=== PATIENT | female | born 1995 | race Caucasian/White ===

== ENCOUNTER 2018-07-12 17:57 | Inpatient (IN) ==
[2018-07-12] MEDS ORDERED: NALBUPHINE HCL 10 MG/ML AMPUL IV PRN ×2 (18:10)
[2018-07-12] MEDS ORDERED: MISOPROSTOL 100 MCG TABLET VG PRN (18:10)
[2018-07-12] MEDS ORDERED: OXYTOCIN/DEXTROSE 5%-WATER 30 UNITS/500 ML BAG IV ONE (18:10)
[2018-07-12] MEDS ORDERED: ONDANSETRON HCL/PF 2 MG/ML VIAL IV PRN (18:10)
[2018-07-12] MEDS ORDERED: LIDOCAINE HCL 50 ML VIAL PERI PRN (18:10)
[2018-07-12] MEDS ORDERED: RINGER'S SOLUTION,LACTATED 1,000 ML IV ONE (18:10)
[2018-07-12 19:17] LABS: Cocaine Ur Negative (NEGATIVE); Urine Barbiturate Negative (NEGATIVE); Urine Benzodiazepines Negative (NEGATIVE); Urine Opiates Negative (NEGATIVE); Urine PCP Negative (NEGATIVE); Urine THC Negative (NEGATIVE)
[2018-07-12] MEDS: RINGER'S SOLUTION,LACTATED 1,000 ML IV PRN (19:17)
[2018-07-13] MEDS: RINGER'S SOLUTION,LACTATED 1,000 ML IV PRN (04:19)
--- NOTE | 2018-07-13 07:50 | HP ---
Chief Complaint - Chief Complaint Date of Service: 07/13/18 Time of Service: 07:46 Chief Complaint: Induction History of Present Illness: The patient presents for an elective IOL. Pt denies vb or lof. She feels ctx. Fetus is active. Medical History (Last Updated 03/07/18 @ 11:00 by Artemio Weeks RN) IBS (irritable bowel syndrome) Onset Date: Unknown Lactose intolerance Onset Date: Unknown Migraine Onset Date: Unknown Surgical History: Surgical History (Last Updated 03/07/18 @ 11:00 by Artemio Weeks RN) No history of previous surgery Family History: Family History (Last Updated 03/07/18 @ 11:01 by Artemio Weeks RN) Mother Hypertension Cancer Grandmother Diabetes Cancer Hypertension Father MVA (motor vehicle accident) Social History: Preferred Language Israeli Smoking Status Never smoker (Last Updated 07/07/18 @ 11:40 by Clary Basilio MD) No Social History Section defined Review Of Systems (GEN) - Review of Systems Generalized/Overall Review: Present: No Symptoms Reported Misc: All systems neg except as marked Allergies/Adverse Reactions: Allergies Allergy/AdvReac Type Severity Reaction Status Date / Time No Known Allergies Allergy Verified 07/12/18 18:48 Milk Allergy Intermediate Uncoded 07/12/18 18:48 Weeds Allergy Intermediate Rash, Uncoded 07/12/18 18:48 blister-like, sores Home Medications: HOME MEDICATIONS vitamin,calcium,pnednndl-ogpq-fzurv acid tablet 1 tab PO DAILY 03/01/18 [Last Taken 07/12/18 09:00] Ferrous Sulfate [Iron] 325 mg PO DAILY 07/12/18 [Last Taken 07/12/18 09:00] Exam - Exam Vital Signs: Vital Signs - Last Taken Temp 36.7 C 07/12/18 18:40 Pulse 87 07/12/18 18:40 Resp 16 07/12/18 18:40 BP 122/76 07/12/18 18:40 Pulse Ox 98 07/12/18 18:40 Constitutional: Present: Alert, Oriented x3, Cooperative, No distress Respiratory: Present: lungs clear, normal breath sounds Cardiovascular/Chest: Present: regular rate, rhythm Abdomen: Present: soft, nontender, nondistended Extremity: Present: non-tender, no calf tenderness Skin Exam: Present: normal color, warm/dry, no cyanosis Appearance: Present: appropriate appearance Eye contact: Present: cooperative Thoughts: Present: normal thought pattern - cvx 3/80/-2 AROM for a large amount of clear fluid Diagnostic Studies: Laboratory Results Urine Opiates Screen Negative (NEGATIVE) 07/12/18 18:19 Barbiturate Screen Negative (NEGATIVE) 07/12/18 18:19 Ur Phencyclidine Scrn Negative (NEGATIVE) 07/12/18 18:19 Urine Amphetamine Negative (NEGATIVE) 07/12/18 18:19 U Benzodiazepines Scrn Negative (NEGATIVE) 07/12/18 18:19 Urine Cocaine Screen Negative (NEGATIVE) 07/12/18 18:19 Urine Marijuana (THC) Negative (NEGATIVE) 07/12/18 18:19 Blood Type B Positive 07/12/18 18:50 Antibody Screen Negative 07/12/18 18:50 Assessment/Plan - Narrative Narrative: 23 yo @ 39w 2d who presented to labor and delivery for an elective IOL. She received one dose of cytotec for cervical ripening followed by pitocin administration. Her pitocin is currently at 12 milliunits/min. AROM for a large amount of clear fluid. FHT cat 1 GBS negative: prophylaxis not indicated
[2018-07-13] MEDS ORDERED: ONDANSETRON HCL/PF 2 MG/ML VIAL IV PRN (09:02)
[2018-07-13] MEDS ORDERED: BUPIVACAINE HCL/0.9 % NACL/PF 250 ML EP PRN (09:02)
[2018-07-13] MEDS ORDERED: NALOXONE HCL 1 MG/1 ML SYRG IV PRN (09:02)
--- NOTE | 2018-07-13 09:13 | PN ---
Progess Note - Interim Date: 07/13/18 Time: 09:13 Narrative: 07/13/18 09:13 Called by RN regarding patient having large emesis, a mild range BP, and brisk reflexes. Pre-eclampsia labs and UP:CR ordered
[2018-07-13] MEDS ORDERED: BUPIVACAINE HCL/PF 30 ML VIAL EP SCH (09:15)
--- NOTE | 2018-07-13 09:16 | ANES ---
Anesthesia Pre Procedure Eval Vitals/Labs: Last Vital Signs Temp 36.7 C 07/12/18 18:40 Pulse 87 07/12/18 18:40 Resp 16 07/12/18 18:40 BP 122/76 07/12/18 18:40 Pulse Ox 98 07/12/18 18:40 HOME MEDICATIONS vitamin,calcium,yusnxfzp-woyo-mddbj acid tablet 1 tab PO DAILY 03/01/18 [Last Taken 07/12/18 09:00] Ferrous Sulfate [Iron] 325 mg PO DAILY 07/12/18 [Last Taken 07/12/18 09:00] Allergies/Adverse Reactions: Allergies Allergy/AdvReac Type Severity Reaction Status Date / Time No Known Allergies Allergy Verified 07/12/18 18:48 Milk Allergy Intermediate Uncoded 07/12/18 18:48 Weeds Allergy Intermediate Rash, Uncoded 07/12/18 18:48 blister-like, sores - Planned Procedure Planned Procedure: Labor epidural Medication List Reviewed:: Yes Allergies Verified: Yes Medical History (Last Reviewed 07/13/18 @ 09:15 by Jacob Aguayo CRNA) IBS (irritable bowel syndrome) Onset Date: Unknown Lactose intolerance Onset Date: Unknown Migraine Onset Date: Unknown Surgical History (Last Reviewed 07/13/18 @ 09:15 by Jacob Aguayo CRNA) No history of previous surgery Family History (Last Reviewed 07/13/18 @ 09:15 by Jacob Aguayo CRNA) Mother Hypertension Cancer Grandmother Diabetes Cancer Hypertension Father MVA (motor vehicle accident) - Anesthesia Assessment and Plan ASA Class: PS, II Anesthesia Type Plan: Epidural
[2018-07-13 09:27] LABS: Hematocrit 33.2 % (37.0-47.0); Hemoglobin 11.4 gm/dL (12.5-16.0); Mean Cell Volume 94.3 fl (78-100); Mean Corpuscular Hemoglobin 32.4 pg (27-31); Mean Corpuscular Hgb Conc 34.3 g/dl (32-36); Mean Platelet Volume 12.9 fl (8-12.5); Neutrophil # 10.3 K/mm3 (1.3-6.0); Neutrophil % 76.5 % (42-75.0); Platelet Count 124 K/mm3 (150-450); Red Blood Count 3.52 M/mm3 (4.2-5.4); Red Cell Distribution Width 12.4 % (11.5-14.0); White Blood Count 13.5 K/mm3 (4.0-10.5)
[2018-07-13 09:36] LABS: Albumin * 2.4 gm/dl (3.4-5.0); Anion Gap 15.1 mmol/L (6.8-13.8); BUN/Creatinine Ratio 15.5 (9.0-21.6); Bilirubin, Total 0.4 mg/dL (0.0-1.1); Ca. Corrected For Albumin 9.7 mg/dL (8.4-10.2); Calcium * 8.7 mg/dL (7.9-10.9); Carbon Dioxide 22.5 mmol/L (24-32.6); Potassium 3.6 mmol/L (3.4-4.6)
--- NOTE | 2018-07-13 09:43 | ANES ---
Anesthesia Procedure Note Procedure Note: ANESTHESIA PROCEDURE NOTE Date of Procedure: 07/13/2018. Time of procedure: 929. Performed by: Jacob Aguayo CRNA Ecological Economist: None. Preprocedure diagnosis: Active labor. Post procedure diagnosis: Same. Procedure: Insertion of labor epidural. Indications: The patient is a 23-year-old female in active labor requesting labor epidural for pain management. Findings: See below. Details of the procedure: The patient was placed in a sitting position. DuraPrep as well as Betadine swabs X3 was applied to the patient's back. Patient was then draped in a sterile fashion. Lidocaine 1% was infiltrated to the skin and subcutaneous tissues at the level of the L3-4 interspace. The epidural space was identified using a 18-gauge Tuohy needle with yamt-mz-bmnyiblcth technique. Epidural catheter was inserted to a depth of 11 centimeters at skin. Negative test dose was elicited using 3 mL of 1% p reservative-free lidocaine plus epinephrine 1 200,000. The epidural catheter was then taped and secured in place. A loading dose of 8 mL of 0.25% preservative-free bupivacaine was administered to the epidural catheter after negative aspiration for blood and CSF. EBL: Minimal. Fluids: N/A. Specimen: N/A. Post procedure condition: The patient tolerated the procedure well. No complications were noted. Thank you for this consultation. Jacob Aguayo CRNA
--- NOTE | 2018-07-13 09:45 | ANES ---
Post Anesthesia Assessment - Vital Signs Vitals: Last Vital Signs Temp 36.6 C 07/13/18 09:40 Pulse 92 07/13/18 09:40 Resp 20 07/13/18 09:40 BP 126/91 H 07/13/18 09:40 Pulse Ox 98 07/13/18 09:40 Airway Patency: Normal - Mental Status Level Of Consciousness: Awake - N/V Assessment Nausea/Vomiting Presence: None Dehydration:: No
[2018-07-13 10:15] LABS: Random Urine Total Protein 13.3 mg/dL (0-12)
[2018-07-13] MEDS ORDERED: SENNOSIDES 8.6 MG TABLET PO PRN (11:20)
[2018-07-13] MEDS ORDERED: HYDROCORTISONE 30 APPL TUBE TP PRN (11:20)
[2018-07-13] MEDS ORDERED: BENZOCAINE/MENTHOL 81 SPRAY CAN TP PRN (11:20)
[2018-07-13] MEDS ORDERED: GLYCERIN/WITCH HAZEL LEAF 40 APPL BOX TP PRN (11:20)
[2018-07-13] MEDS ORDERED: BISACODYL 10 MG SUPP.RECT RC PRN (11:20)
[2018-07-13] MEDS ORDERED: oxyCODONE HCL/ACETAMINOPHEN 1 TAB TABLET PO PRN ×2 (11:20)
[2018-07-13] MEDS ORDERED: MISOPROSTOL 200 MCG TABLET RC ONE (11:25)
--- NOTE | 2018-07-13 11:25 | OR ---
Operative Report - Dictated Report Narrative: Date of delivery: 07/13/2017 Time of delivery: 1052 Gender: male weight: 2838 grams APGARS: 6/8 The patient is a 23 year old @ 39w 2d who presented to labor and delivery for an elective induction of labor. She received one dose of cytotec for cervical ripening followed by pitocin administration and AROM for a large amount of fluid. She progressed to complete dilation. The baby was having variable decelerations and thus a vacuum delivery was done. There was one pop off of the mushroom vacuum. The pressure was at the green level. The baby delivered in the NIKKI presentation. A tight nuchal cord times two was noted and thus the cord was clamped and cut at the perineum. The rest of the infant was delivered. The cord was clamped and cut and the infant was transferred to the warmer. There was avulsion of the umbilical cord which was thin. The placenta was manually removed in three pieces. Due to the manual uterine exploration 2grams of Ancef IV were administered after delivery. Uterine atony was noted. Pitocin 30 units, cytotec 1000mcg, and methergine 0.2 IM were given. Manual uterine exploration was again undertaken and clots were removed from the lower uterine segment after which the fundus was firm. Bilateral labial lacerations were noted. The right labial laceration was repaired with 4-0 vicryl for hemostasis. Hemostasis was adequate. Lacerations: bilateral labial EBL: 500 mL Complications: none Specimens: placenta
[2018-07-13] MEDS ORDERED: METHYLERGONOVINE MALEATE 0.2 MG/ML AMPUL IM ONE (11:26)
[2018-07-13] MEDS ORDERED: ceFAZolin SODIUM/DEXTROSE,ISO 2 GM/50 ML BAG IV ONE (12:00)
[2018-07-13] MEDS: IBUPROFEN 800 MG TABLET PO PRN (13:55)
[2018-07-13] MEDS: DOCUSATE SODIUM 100 MG CAPSULE PO SCH ×2 (21:16→21:17)
[2018-07-14] MEDS: OXYTOCIN/DEXTROSE 5%-WATER 30 UNITS/500 ML BAG IV ONE ×2 (01:38→02:23)
[2018-07-14] MEDS: IBUPROFEN 800 MG TABLET PO PRN ×2 (04:55→11:04)
[2018-07-14 05:57] LABS: Hematocrit 27.3 % (37.0-47.0); Hemoglobin 9.4 gm/dL (12.5-16.0); Mean Cell Volume 94.5 fl (78-100); Mean Corpuscular Hemoglobin 32.5 pg (27-31); Mean Corpuscular Hgb Conc 34.4 g/dl (32-36); Mean Platelet Volume 11.9 fl (8-12.5); Neutrophil # 10.2 K/mm3 (1.3-6.0); Neutrophil % 76.5 % (42-75.0); Platelet Count 123 K/mm3 (150-450); Red Blood Count 2.89 M/mm3 (4.2-5.4); Red Cell Distribution Width 12.3 % (11.5-14.0); White Blood Count 13.4 K/mm3 (4.0-10.5)
--- NOTE | 2018-07-14 06:29 | PATH ---
PHYSICIAN: Clary Basilio MD LAB#: [id number] SPECIMEN DATE: 07/13/2018 SPECIMEN: Placenta CLINICAL INFORMATION: The patient is a 23-year-old woman who presents at 39 weeks 2 days to labor and delivery for an elective induction of labor. Anal vaginal smear for group B strep negative. Operative findings the patient delivered a 2838 g boy Apgars 6, 8 with a tight nuchal cord x2 which was cut at the perineum. There was avulsion of the umbilical cord which was thin. The placenta was removed manually removed in 3 pieces. GROSS DESCRIPTION: The specimen is received in a formalin filled container appropriately designated, "placenta." The specimen consists of a 370 g fragmented placenta and the largest fragment is 17 x 10 x 2.8 cm. The umbilical cord is submitted detached and shows a 3 cm velamentous area on the longer 35 x 1.0 cm fragment; additional 25 x 1.0 cm detached trivascular fragment. The surface is slate burks and slightly disrupted with no other lesions. Cross sections through the placenta show beefy red parenchyma with no focal lesions. The cotyledons in the largest fragment is are only slightly disrupted. membranes are slightly opacified. Summary of cassettes: 1 = umbilical cord at area of the velamentous insertion; 2= umbilical cord remaining areas; 3,4= full-thickness central placenta; 5 = margin of placenta; 6 = membranes. DIAGNOSIS: INTRAUTERINE CONTENTS, VAGINAL DELIVERY: THIRD TRIMESTER TRI-VASCULAR UMBILICAL CORD 370 GRAM PLACENTA SHOWING: -NO PATHOLOGIC FINDINGS COMMENT: No evidence of chorioamnionitis, villitis or infarction. The placenta is received fragmented as described in the operative report.
--- NOTE | 2018-07-14 08:50 | PN ---
Subjective - Date and Time Seen Date: 07/14/18 Time: 08:48 Subjective Narrative: Pt without complaints. Vaginal bleeding is normal Objective Objective Narrative: See vital signs - Review of Systems Generalized/Overall Review: Reports: No Symptoms Reported Misc: All systems neg except as marked - Vitals Vitals: Last Vital Signs Temp 37.1 C 07/14/18 01:36 Pulse 80 07/14/18 01:36 Resp 16 07/14/18 01:36 BP 124/77 07/14/18 01:36 Pulse Ox 98 07/14/18 01:36 - Abnormal Lab Findings Abnormal Lab Findings: Abnormal Lab Results 07/13/18 07/13/18 07/13/18 Range/Units 09:00 09:00 09:57 WBC 13.5 H (4.0-10.5) K/mm3 RBC 3.52 L (4.2-5.4) M/mm3 Hgb 11.4 L (12.5-16.0) gm/dL Hct 33.2 L (37.0-47.0) % MCH 32.4 H (27-31) pg Plt Count 124 L (150-450) K/mm3 MPV 12.9 H (8-12.5) fl Immature Gran % (Auto) (0.001-0.429) % Immature Gran # (Auto) 0.06 H (0.000-0.0310) K/mm3 Neutrophils % 76.5 H (42-75.0) % Lymphocytes % 17.1 L (20-51) % Neutrophils # 10.3 H (1.3-6.0) K/mm3 Chloride 107 H (97-106) mmol/L Carbon Dioxide 22.5 L (24-32.6) mmol/L Anion Gap 15.1 H (6.8-13.8) mmol/L ALT 12 L (19-67) U/L Total Protein 6.0 L (6.2-8.2) gm/dL Albumin 2.4 L (3.4-5.0) gm/dl U Random Total Protein 13.3 H (0-12) mg/dL 07/14/18 Range/Units 05:45 WBC 13.4 H (4.0-10.5) K/mm3 RBC 2.89 L (4.2-5.4) M/mm3 Hgb 9.4 L (12.5-16.0) gm/dL Hct 27.3 L (37.0-47.0) % MCH 32.5 H (27-31) pg Plt Count 123 L (150-450) K/mm3 MPV (8-12.5) fl Immature Gran % (Auto) 0.50 H (0.001-0.429) % Immature Gran # (Auto) 0.07 H (0.000-0.0310) K/mm3 Neutrophils % 76.5 H (42-75.0) % Lymphocytes % 18.2 L (20-51) % Neutrophils # 10.2 H (1.3-6.0) K/mm3 Chloride (97-106) mmol/L Carbon Dioxide (24-32.6) mmol/L Anion Gap (6.8-13.8) mmol/L ALT (19-67) U/L Total Protein (6.2-8.2) gm/dL Albumin (3.4-5.0) gm/dl U Random Total Protein (0-12) mg/dL - Exam Constitutional: Present: Alert, Oriented x3, Cooperative, No distress Abdomen: Present: soft, nontender, nondistended - fundus is firm Extremity: Present: non-tender, no calf tenderness Skin Exam: Present: normal color, warm/dry, no cyanosis Appearance: Present: appropriate appearance Eye contact: Present: cooperative Thoughts: Present: normal thought pattern Cauti Physician Documentation - Urinary Catheter Management Urethral (Blake) Urethral Indwelling: No Date of Insertion: 07/13/18 Time of Insertion: 09:53 Date of Removal: 07/13/18 Time of Removal: 10:40 Assessment/Plan Plan Narrative: PPD 1 s/p Placenta has chorio. Pediatric team notified Stable thrombocytopenia. Recheck PP Discharge tomorrow
[2018-07-14] MEDS: DOCUSATE SODIUM 100 MG CAPSULE PO SCH ×2 (11:04→21:30)
--- NOTE | 2018-07-15 07:56 | PN ---
Subjective - Date and Time Seen Date: 07/15/18 Time: 07:54 Subjective Narrative: Pt without complaints. Vaginal bleeding is normal Objective Objective Narrative: See vital signs - Review of Systems Generalized/Overall Review: Reports: No Symptoms Reported Misc: All systems neg except as marked - Vitals Vitals: Last Vital Signs Temp 36.9 C 07/15/18 01:13 Pulse 68 07/15/18 01:13 Resp 16 07/15/18 01:13 BP 121/77 07/15/18 01:13 Pulse Ox 100 07/15/18 01:13 - Exam Constitutional: Present: Alert, Oriented x3, Cooperative, No distress Abdomen: Present: soft, nontender, nondistended - fundus is firm Extremity: Present: non-tender, no pedal edema Skin Exam: Present: normal color, warm/dry, no cyanosis Appearance: Present: appropriate appearance Eye contact: Present: cooperative Thoughts: Present: normal thought pattern Cauti Physician Documentation - Urinary Catheter Management Urethral (Blake) Urethral Indwelling: No Date of Insertion: 07/13/18 Time of Insertion: 09:53 Date of Removal: 07/13/18 Time of Removal: 10:40 Assessment/Plan Plan Narrative: PPD 2 s/p Doing well Discharge today
[2018-07-15] MEDS: IBUPROFEN 800 MG TABLET PO PRN (08:11)
[2018-07-15] MEDS: DOCUSATE SODIUM 100 MG CAPSULE PO SCH (08:11)
[2018-07-15 08:40] VITALS: BP 111/69
== END 2018-07-15 13:25 | disposition home or self-care (01) | DRG 806 ==
LOC: OB → OBSVTOIN 17:57
PROVIDERS: ADMIT Obstetrics & Gynecology; ATTEND Obstetrics & Gynecology
CPT/HCPCS: 36415; 59025; 80053; 80307; 82570; 84155; 84156; 85025; 86850; 86900; 88307